=== PATIENT | male | born 1955 | race African-American/Black ===

== ENCOUNTER → 2021-03-29 | Outpatient (CLI) | payer MEDICARE, OTHER ==
--- NOTE | 2021-03-29 17:21 | RAD ---
CLINICAL HISTORY: Reason: EVAL FOR AAA; Hx OF SMOKING / Spl. Instructions: / History: COMPARISON: None available. TECHNIQUE: The abdominal aorta was examined from the diaphragm to the proximal common iliac arteries. FINDINGS: The proximal abdominal aorta measures 2.6 cm. The mid abdominal aorta measures 2.4 cm. The distal abdominal aorta measures 1.8 cm. The right common iliac artery measures 0.9 cm in diameter. The left common iliac artery measures 1.1 cm in diameter. IMPRESSION: No evidence for aortic aneurysm. Electronically signed by: Vickey Genao MD (03/29/2021 5:19 PM) [facility]
== END ==
LOC: US 10:59
PROVIDERS: ATTEND Family Medicine
DX: Z00.00 Encounter for general adult medical examination without abnormal findings (principal); Z13.6 Encounter for screening for cardiovascular disorders; I71.4 Abdominal aortic aneurysm, without rupture; Z87.891 Personal history of nicotine dependence
CPT/HCPCS: 76770